=== PATIENT | female | born 1990 | race Caucasian/White ===

== ENCOUNTER 2017-03-10 21:48 | Emergency (ER) | payer OTHER ==
[~2017-03-10] VITALS: Ht 172.7 cm; Wt 81.6 kg
--- NOTE | 2017-03-10 22:25 | NUR ---
PT CO "UPPER ABD PAIN X5 DAYS; WORSE AFTER EATING" HX OF GERD. VSS. AWAITING MD ORDER
--- NOTE | 2017-03-10 22:35 | NUR ---
DR ORANTES AT BEDSIDE FOR EVAL
[2017-03-10] MEDS ORDERED: LIDOCAINE VISCOUS 2% UD 15 ML UDC ONE (22:40)
[2017-03-10] MEDS ORDERED: MAG HYDROX/AL HYDROX/SIMETH 30 ML UDC ONE (22:40)
[2017-03-10] MEDS ORDERED: FAMOTIDINE (20 MG) 20 MG TABLET ONE (22:40)
--- NOTE | 2017-03-10 22:55 | NUR ---
URINE SAMPLE COLLECTED SENT TO LAB
--- NOTE | 2017-03-10 22:55 | NUR ---
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
[2017-03-10] MEDS ORDERED: LIDOCAINE VISCOUS 2% UD 15 ML UDC PO ONE (23:00)
[2017-03-10] MEDS ORDERED: MAG HYDROX/AL HYDROX/SIMETH 30 ML UDC PO ONE (23:00)
[2017-03-10] MEDS ORDERED: FAMOTIDINE (20 MG) 20 MG TABLET PO ONE (23:00)
[2017-03-10 23:03] LABS: BASOPHILS % (AUTO) 0.6 % (0.0-2.0); EOSINOPHILS # (AUTO) 0.1 /CMM (0.0-0.7); EOSINOPHILS % (AUTO) 1.6 % (0.0-6.0); HEMATOCRIT 38 % (33-45); HEMOGLOBIN 12.4 g/dL (11.5-14.8); LYMPHOCYTES # (AUTO) 1.4 /CMM (0.8-4.8); LYMPHOCYTES % (AUTO) 32.2 % (20.0-44.0); MEAN CORPUSCULAR HEMOGLOBIN 28 PG (26.0-33.0); MEAN CORPUSCULAR HGB CONC 33 g/dl (31.0-36.0); MEAN CORPUSCULAR VOLUME 84 fL (82-100); MONOCYTES # (AUTO) 0.4 /CMM (0.1-1.30); MONOCYTES % (AUTO) 9.5 % (2.0-12.0); NEUTROPHILS # (AUTO) 2.5 /CMM (1.8-8.9); NEUTROPHILS % (AUTO) 56.1 % (43.0-81.0); PLATELET COUNT (AUTO) 306 /CMM (150-450); RDW COEFFICIENT OF VARIATION 13.5 (11.5-15.0); RED BLOOD CELL COUNT(AUTO) 4.48 MIL/uL (4.0-5.2); WHITE BLOOD COUNT (AUTO) 4.4 K/uL (4.3-11.0)
[2017-03-10 23:14] LABS: CREATININE 0.8 mg/dL (0.6-1.3); POTASSIUM 3.6 mmol/L (3.5-5.1)
[2017-03-10 23:20] LABS: ALBUMIN 3.9 g/dL (3.4-5.0); BILIRUBIN,DIRECT 0.1 mg/dL (0.0-0.2); BILIRUBIN,TOTAL 0.3 mg/dL (0.2-1.0); TOTAL PROTEIN, SERUM 8.3 g/dL (6.4-8.2)
--- NOTE | 2017-03-10 23:24 | NUR ---
REPORT GIVEN TO TIMO FOR VICKIE
[2017-03-11] MEDS ORDERED: DICYCLOMINE HCL 10 MG CAPSULE PO ONE ×2 (00:05→00:30)
[2017-03-11 00:22] LABS: APPEARANCE,URINE CLEAR (CLEAR); BILIRUBIN,URINE NEGATIVE (NEGATIVE); BLOOD, URINE NEGATIVE Ery/uL (NEGATIVE); COLOR,URINE YELLOW (YELLOW); KETONES,URINE NEGATIVE (NEGATIVE); LEUKOCYTE ESTERASE ,URINE NEGATIVE (NEGATIVE); NITRITE, URINE NEGATIVE (NEGATIVE); PROTEIN,URINE NEGATIVE (NEGATIVE); UGLUCOSE NEGATIVE (NEGATIVE); UROBILINOGEN,URINE 0.2 EU/dL (0.2)
[2017-03-11 01:39] VITALS: BP 128/75
== END 2017-03-11 01:42 | disposition home or self-care (01) ==
LOC: ER 21:49
DX: K29.70 Gastritis, unspecified, without bleeding (principal); R79.89 Other specified abnormal findings of blood chemistry; K21.9 Gastro-esophageal reflux disease without esophagitis; F17.210 Nicotine dependence, cigarettes, uncomplicated
CPT/HCPCS: 36415; 76705; 80048; 80076; 81001; 83690; 84703; 85025; 99285; A4606; Z7610; 81000-TC

== ENCOUNTER 2017-10-16 15:52 | Emergency (ER) | payer OTHER ==
[~2017-10-16] VITALS: Ht 172.7 cm; Wt 86.2 kg
[2017-10-16 15:57] VITALS: BP 124/72
[2017-10-17] MEDS ORDERED: ASPIRIN 81 MG TAB.CHEW ONE (14:33)
== END 2017-10-16 16:22 | disposition home or self-care (01) ==
LOC: ER 15:57
DX: B07.0 Plantar wart (principal); M79.671 Pain in right foot; K21.9 Gastro-esophageal reflux disease without esophagitis; F41.9 Anxiety disorder, unspecified; F17.200 Nicotine dependence, unspecified, uncomplicated
CPT/HCPCS: 99281; A4606; Z7610; Z7502

== ENCOUNTER 2018-07-13 23:16 | Emergency (ER) | payer OTHER ==
[~2018-07-13] VITALS: Ht 172.7 cm; Wt 76.2 kg
[2018-07-13 23:19] VITALS: BP 145/112
[2018-07-13] MEDS ORDERED: LORAZEPAM 1 MG TABLET ONE (23:53)
[2018-07-13] MEDS: LORAZEPAM 1 MG TABLET PO ONE (23:57)
== END 2018-07-14 00:26 | disposition home or self-care (01) ==
LOC: ER 23:16
DX: F41.9 Anxiety disorder, unspecified (principal); E03.9 Hypothyroidism, unspecified; R06.4 Hyperventilation; K21.9 Gastro-esophageal reflux disease without esophagitis; F17.200 Nicotine dependence, unspecified, uncomplicated; Z90.89 Acquired absence of other organs
CPT/HCPCS: A4606; Z7610

== ENCOUNTER 2019-03-15 19:16 | Emergency (ER) ==
--- NOTE | 2019-03-15 19:46 | NUR ---
CALLED PT THREE TIMES. NO RESPONSE.
== END 2019-03-15 20:34 | disposition left against medical advice (07) ==
LOC: ER 19:16
DX: Z53.21 Procedure and treatment not carried out due to patient leaving prior to being seen by health care provider (principal)

== ENCOUNTER 2019-04-24 21:34 | Emergency (ER) | payer OTHER ==
[~2019-04-24] VITALS: Ht 172.7 cm; Wt 83.9 kg
[2019-04-24 21:36] VITALS: BP 146/84
[2019-04-24] MEDS ORDERED: LORAZEPAM 1 MG TABLET ONE (21:50)
[2019-04-24] MEDS ORDERED: LORAZEPAM 1 MG TABLET PO ONE (22:00)
== END 2019-04-24 22:02 | disposition home or self-care (01) ==
LOC: ER 21:36
DX: F41.9 Anxiety disorder, unspecified (principal); R00.0 Tachycardia, unspecified; K21.9 Gastro-esophageal reflux disease without esophagitis; F32.9 Major depressive disorder, single episode, unspecified; F17.200 Nicotine dependence, unspecified, uncomplicated; Z90.89 Acquired absence of other organs; Z60.2 Problems related to living alone

== ENCOUNTER 2019-06-25 00:26 | Emergency (ER) | payer OTHER | END 2019-06-25 02:08 | disposition left against medical advice (07) | DX: Z53.21 Procedure and treatment not carried out due to patient leaving prior to being seen by health care provider (principal) ==

== ENCOUNTER 2019-11-29 08:33 | Emergency (ER) | payer OTHER ==
[~2019-11-29] VITALS: Ht 172.7 cm; Wt 79.8 kg
--- NOTE | 2019-11-29 09:00 | NUR ---
patient came in to the er c/o cough and congestion x 3 days. On room air,breathing evenly and unlabored. kept comfortable. will continue to monitor accordingly.
[2019-11-29 10:03] VITALS: BP 125/81
--- NOTE | 2019-11-29 10:04 | NUR ---
Patient discharged to home in stable condition. Written and verbal after care instructions given. Patient verbalizes understanding of instruction.
== END 2019-11-29 10:03 | disposition home or self-care (01) ==
LOC: ER 08:36
DX: J10.1 Influenza due to other identified influenza virus with other respiratory manifestations (principal); K21.9 Gastro-esophageal reflux disease without esophagitis; F17.200 Nicotine dependence, unspecified, uncomplicated; F41.9 Anxiety disorder, unspecified; F32.9 Major depressive disorder, single episode, unspecified; Z90.89 Acquired absence of other organs
CPT/HCPCS: 71045-TC

== ENCOUNTER 2024-05-07 08:59 | Emergency (ER) | payer BC, OTHER ==
[~2024-05-07] VITALS: Ht 172.7 cm; Wt 80.3 kg
[2024-05-07 09:17] VITALS: TEMP 97.9
[2024-05-07] MEDS ORDERED: diphenhydrAMINE HCL 50 MG/ML VIAL ONE (10:27)
[2024-05-07] MEDS ORDERED: methylPREDNISolone SOD SUCC 125 MG/2ML VIAL ONE (10:27)
[2024-05-07] MEDS ORDERED: FAMOTIDINE/PF INJ 20 MG/2 ML VIAL IV ONE (10:27)
[2024-05-07] MEDS: methylPREDNISolone SOD SUCC 125 MG/2ML VIAL IV ONE (10:33)
[2024-05-07] MEDS: FAMOTIDINE/PF INJ 20 MG/2 ML VIAL IV ONE (10:33)
[2024-05-07] MEDS: diphenhydrAMINE HCL 50 MG/ML VIAL IV ONE (10:33)
[2024-05-07] MEDS: IV NS 0.9% 1,000 ML BAG IV ONE (10:33)
[2024-05-07 10:34] LABS: BASOPHILS % (AUTO) 0.8 % (0.0-2.0); EOSINOPHILS # (AUTO) 0.1 K/uL (0.0-0.7); EOSINOPHILS % (AUTO) 2.2 % (0.0-6.0); HEMATOCRIT 38 % (33-45); LYMPHOCYTES % (AUTO) 17.3 % (20.0-44.0); MEAN CORPUSCULAR HEMOGLOBIN 30 PG (26.0-33.0); MEAN CORPUSCULAR HGB CONC 34 g/dl (31.0-36.0); MEAN CORPUSCULAR VOLUME 87 fL (82-100); MONOCYTES # (AUTO) 0.4 K/uL (0.1-1.30); MONOCYTES % (AUTO) 6.5 % (2.0-12.0); NEUTROPHILS # (AUTO) 4.4 K/uL (1.8-8.9); NEUTROPHILS % (AUTO) 73.2 % (43.0-81.0); PLATELET COUNT (AUTO) 285 K/uL (150-450); RED BLOOD CELL COUNT(AUTO) 4.38 MIL/uL (4.0-5.2); RED CELL DISTRIBUTION WIDTH 14.1 % (11.5-15.0)
[2024-05-07 10:43] LABS: CALCIUM, SERUM 9.1 mg/dL (8.5-10.1); CREATININE 0.8 mg/dL (0.6-1.3); POTASSIUM 3.9 mmol/L (3.5-5.1)
[2024-05-07 10:49] LABS: ALBUMIN 3.1 g/dL (3.4-5.0); BILIRUBIN,DIRECT 0.1 mg/dL (0.0-0.2); BILIRUBIN,TOTAL 0.3 mg/dL (0.2-1.0)
[2024-05-07 10:50] LABS: LACTIC ACID 1.3 mmol/L (0.4-2.0)
[2024-05-07] MEDS ORDERED: DIPH25CA83 PO (11:44)
[2024-05-07] MEDS ORDERED: FAMO-131 PO (11:44)
[2024-05-07] MEDS ORDERED: PRED20TA PO (11:44)
[2024-05-07] MEDS ORDERED: GLY/480L3 TP (11:49)
[2024-05-07 11:52] LABS: PREGNANCY TEST URINE QUAL NEGATIVE (NEGATIVE)
[2024-05-07 11:53] LABS: APPEARANCE,URINE CLEAR (CLEAR); BILIRUBIN,URINE NEGATIVE (NEGATIVE); BLOOD, URINE NEGATIVE Ery/uL (NEGATIVE); COLOR,URINE YELLOW (YELLOW); KETONES,URINE NEGATIVE (NEGATIVE); LEUKOCYTE ESTERASE ,URINE NEGATIVE (NEGATIVE); NITRITE, URINE NEGATIVE (NEGATIVE); PROTEIN,URINE NEGATIVE (NEGATIVE); UGLUCOSE NEGATIVE (NEGATIVE); UROBILINOGEN,URINE 0.2 EU/dL (0.2)
[2024-05-07 12:07] VITALS: BP 127/60; O2SAT 100
== END 2024-05-07 12:00 | disposition home or self-care (01) ==
LOC: ER 09:17
DX: L29.9 Pruritus, unspecified (principal); R21 Rash and other nonspecific skin eruption; K21.9 Gastro-esophageal reflux disease without esophagitis; F32.A Depression, unspecified; F17.200 Nicotine dependence, unspecified, uncomplicated; Z90.49 Acquired absence of other specified parts of digestive tract
CPT/HCPCS: 99284; 96374; 96375; 96361; 85025; 80048; 87040 ×2; 83605; 80076; 84703; 81003; 36415; 84443; J1200; J3490; J2919; J7030